=== PATIENT | female | born 1965 ===

== ENCOUNTER 2018-06-11 15:00 | Observation (INO) | payer BC, OTHER ==
[2018-06-11] MEDS ORDERED: Sodium Chloride 0.9% 1,000 ML IV STA (16:02)
[2018-06-11 16:08] LABS: BASO % 0.4 % (0.0-2.0); EOS # 0.1 K/uL (0.0-0.7); EOS % 1.3 % (0.0-4.0); HEMOGLOBIN 12.2 g/dL (12.0-16.0); LYMPH # 1.7 K/uL (1.0-4.3); MEAN CELL VOLUME 91.9 fl (81.0-99.0); MEAN CORPUSCULAR HEMOGLOBIN 30.3 pg (27.0-31.0); MONO # 0.4 K/uL (0.0-0.8); NEUT # 3.8 K/uL (1.8-7.0); NEUT % 63.3 % (50.0-75.0); NRBC % 0.2 % (0.0-0.0); RBC 4.01 Mil/uL (3.80-5.20); RED CELL DISTRIBUTION WIDTH 14.4 % (11.5-14.5)
[2018-06-11 16:19] LABS: BLOOD UREA NITROGEN 14 mg/dl (7-17); CALCIUM 9.7 mg/dL (8.4-10.2); GFR NON-AFRICAN AMERICAN > 60
--- NOTE | 2018-06-11 16:19 | ED PDOC ---
HPI: Chest Pain Time Seen by Provider: 06/11/18 15:33 Chief Complaint (Nursing): Palpitations Chief Complaint (Provider): chest pain and palpitations History Per: Patient History/Exam Limitations: no limitations Onset/Duration Of Symptoms: Days (2) Current Symptoms Are (Timing): Still Present Associated Symptoms: Syncope Exacerbating Factors: Movement Additional Complaint(s): 52 year old female with HTN and diabetes presents to the ED for an evaluation of chest pain, palpitations and one syncopal episode. Patient reports of the chest pain onset for 2 days that resolved. Yesterday, she had palpitations when walkin g and with exertion. She went to [facility] for further evaluation and was referred to the ED for further evaluation. She came to the ED via EMS and in triage patient had a syncopal episode that was witnessed by the daughter. She does not recall what happened and she recovered quickly. Otherwise, she denies shortness of breath or difficulty breathing. PCP: Dr. Bryan Zuñiga Oncologist: located in [place] Past Medical History Reviewed: Historical Data, Nursing Documentation, Vital Signs Vital Signs: Last Vital Signs Temp 98.8 F 06/11/18 15:18 Pulse 109 H 06/11/18 15:18 Resp 18 06/11/18 15:18 BP 166/85 H 06/11/18 15:18 Pulse Ox 100 06/11/18 15:18 - Medical History PMH: Diabetes, HTN Other PMH: CML - Surgical History Surgical History: Cholecystectomy, Hernia Repair Other surgeries: Left breast mastectomy - Family History Family History: States: Unknown Family Hx - Home Medications Home Medications: Ambulatory Orders Medication Instructions Recorded Amlodipine Besylate/Benazepril 5 mg PO DAILY 06/11/18 [Amlodipine-Benazepril 10-40 mg] Atenolol [Tenormin] 25 mg PO DAILY 06/11/18 Canagliflozin/Metformin HCl 1 tab PO DAILY 06/11/18 [Invokamet Xr 50-1,000 mg Tab] Dulaglutide [Trulicity] 1 dose SC QWK 06/11/18 Insulin Degludec [Tresiba] 100 unit SC DAILY 06/11/18 Ketoconazole 2% Cr [Nizoral] 1 tube TOP DAILY 06/11/18 Losartan Potassium 50 mg PO DAILY 06/11/18 Pantoprazole Sodium [Protonix] 40 mg PO DAILY 06/11/18 Aspirin [Low Dose Aspirin EC] 81 mg PO DAILY #30 tablet. 06/12/18 Atorvastatin [Lipitor] 40 mg PO HS #30 tab 06/12/18 - Allergies Allergies/Adverse Reactions: Allergies Allergy/AdvReac Type Severity Reaction Status Date / Time iodine AdvReac Severe SHORTNESS Verified 06/11/18 17:53 OF BREATH THERESA Risk Score for UA/NSTEMI - THERESA Risk Score Age > 64: NO 3 or more CAD Risk Factors: YES Known CAD (Stenosis greater than 50%): NO Aspirin use in past 7 days: NO Severe Angina: NO EKG ST changes greater than 0.5mm: NO Positive Cardiac Marker: NO THERESA Score: 1 Risk %: 5% Wells Criteria for PE - Wells Criteria for Pulmonary Embolism Clinical Signs and Symptoms of DVT: No P.E is #1 Diagnosis, or Equally Likely: Yes Heart Rate >100: Yes Immobilization at least 3 days;Surgery previous 4 weeks: No Previous, objectively diagnosed PE or DVT: No Hemoptysis: No Malignancy w/treatment within 6 months, or palliative: Yes Total Score: 3.5 Review of Systems ROS Statement: Except As Marked, All Systems Reviewed And Found Negative Constitutional: Negative for: Fever Cardiovascular: Positive for: Chest Pain, Palpitations Respiratory: Negative for: Shortness of Breath Neurological: Positive for: Other (syncopal episode ) Physical Exam - Reviewed Nursing Documentation Reviewed: Yes Vital Signs Reviewed: Yes - Physical Exam Appears: Positive for: Well (comfortable ), Non-toxic, No Acute Distress Head Exam: Positive for: ATRAUMATIC, NORMAL INSPECTION, NORMOCEPHALIC Skin: Positive for: Normal Color, Warm, Dry. Negative for: Rash Eye Exam: Positive for: EOMI, Normal appearance, PERRL ENT: Positive for: Normal ENT Inspection Neck: Positive for: Normal, Painless ROM, Supple. Negative for: Decreased ROM Cardiovascular/Chest: Positive for: Regular Rate, Rhythm, Tachycardia Respiratory: Positive for: Normal Breath Sounds. Negative for: Respiratory Distress Gastrointestinal/Abdominal: Positive for: Normal Exam, Soft. Negative for: Tenderness Back: Positive for: Normal Inspection. Negative for: L CVA Tenderness, R CVA Tenderness Extremity: Positive for: Normal ROM. Negative for: Tenderness, Pedal Edema, Deformity Neurological/Psych: Positive for: Awake, Alert, Normal Tone, Oriented (x3) - Laboratory Results Result Diagrams: 06/11/18 16:00 06/12/18 05:12 - ECG ECG Rhythm: Positive for: Normal QRS, Sinus Rhythm. Negative for: ST/T Changes Rate: 97 O2 Sat by Pulse Oximetry: 100 (RA) Pulse Ox Interpretation: Normal Medical Decision Making Medical Decision Making: Time: 15:57 Impression: chest pain, palpitation and syncope Differential Diagnosis: PE, cardiac arrhythmia less likely aortic dissection, ACS Plan: Angio Chest PE protocol CT Head w/o contrast CT B-type natriuretic peptide CBC w/ differential Normal 1000 mls/hr monitor tech Glucose, Blood, Poc EKG: normal sinus rhythm, normal QRS, no ST change with 97bpm 17:28 PROCEDURE: CT HEAD WITHOUT CONTRAST. HISTORY: syncope COMPARISON: None available. TECHNIQUE: Axial computed tomography images were obtained through the head/brain without intravenous contrast. Radiation dose: Total exam DLP = 791.87 mGy-cm. This CT exam was performed using one or more of the following dose reduction techniques: Automated exposure control, adjustment of the mA and/or kV according to patient size, and/or use of iterative reconstruction technique. FINDINGS: HEMORRHAGE: No intracranial hemorrhage. BRAIN: No mass effect or edema. No atrophy or chronic microvascular ischemic changes. VENTRICLES: Unremarkable. No hydrocephalus. CALVARIUM: Unremarkable. PARANASAL SINUSES: Sphenoid retention cyst/polyp. MASTOID AIR CELLS: Unremarkable as visualized. No inflammatory changes. OTHER FINDINGS: None. IMPRESSION: Normal CT of the Head. No intracranial mass, hemorrhage or evidence of acute infarct. Sphenoid retention cyst/polyp. Scribe Attestation: Documented by Edilia Glover, acting as a scribe for Vicenta Coyne MD Provider Scribe Attestation: All medical record entries made by the Scribe were at my direction and personally dictated by me. I have reviewed the chart and agree that the record accurately reflects my personal performance of the history, physical exam, medical decision making, and the department course for this patient. I have also personally directed, reviewed, and agree with the discharge instructions and disposition. Disposition - Clinical Impression Clinical Impression: Palpitations, Syncope, Chest pain - Patient ED Disposition Is Patient to be Admitted: Yes Discussed With DrJose: Bryan Zuñiga Doctor Will See Patient In The: ED Counseled Patient/Family Regarding: Studies Performed, Diagnosis - Disposition Disposition Time: 17:44 Condition: FAIR - Pt Status Changed To: Hospital Disposition Of: Observation - POA Present On Arrival: Falls Or Trauma
[2018-06-11 16:38] LABS: B-TYPE NATRIURETIC PEPTIDE 38.1 pg/ml (0-900)
--- NOTE | 2018-06-11 17:32 | CT ---
Date of service: 06/11/2018 PROCEDURE: CT HEAD WITHOUT CONTRAST. HISTORY: syncope COMPARISON: None available. TECHNIQUE: Axial computed tomography images were obtained through the head/brain without intravenous contrast. Radiation dose: Total exam DLP = 791.87 mGy-cm. This CT exam was performed using one or more of the following dose reduction techniques: Automated exposure control, adjustment of the mA and/or kV according to patient size, and/or use of iterative reconstruction technique. FINDINGS: HEMORRHAGE: No intracranial hemorrhage. BRAIN: No mass effect or edema. No atrophy or chronic microvascular ischemic changes. VENTRICLES: Unremarkable. No hydrocephalus. CALVARIUM: Unremarkable. PARANASAL SINUSES: Sphenoid retention cyst/polyp. MASTOID AIR CELLS: Unremarkable as visualized. No inflammatory changes. OTHER FINDINGS: None. IMPRESSION: Normal CT of the Head. No intracranial mass, hemorrhage or evidence of acute infarct. Sphenoid retention cyst/polyp.
[2018-06-11] MEDS ORDERED: Hydrocortisone- 200 MG in Sodium Chloride 0.9% 100 ML IV STA (18:20)
--- NOTE | 2018-06-11 18:50 | CP.PCM.HP ---
History of Present Illness - History of Present Illness History of Present Illness: 52 y/o F with PMH of IDDM-II, HTN, HLD obesity, leukemia, Breast ca s/p partial lumpectomy, postherpetic neuralgia and GERD admitted to [facility] for evaluation and treatment of syncope, chest pain and tachycardia. Patient was sent to [facility] by PMD for evaluation or 2 days hx of chest pain and tachycardia. Chest pain, Dull, comes and goes, non pleuritic, non reproducible, found to have tachycardia in clinic. Patient reports one episode of syncope while waiting for triage in ER, + LOC for few seconds as per sister, denies any head trauma. Patient denies any awareness of syncope. + mild lighheadedness, denies blurred vision, SOB, abdomi nal pain, weakness, or dysuria. PCP: Dr. Bryan Zuñiga Oncologist: located in [place] PMH/PSH: IDDM-II, HTN, HLD obesity, leukemia, Breast ca s/p partial lumpectomy, postherpetic neuralgia, CHolecystectomy and GERD Allg: Iodiine Meds: As per EMR SH: Denies FH: Denies ROS: As per HPI ER Course: VS: Afebrile, HR 109, RR 18, 166/85, SPo2 100 CBC, CMP and Trop normal D.dimer 250 CT head: no acute changes EKG: NSR CT angio Present on Admission - Present on Admission Any Indicators Present on Admission: No Review of Systems - Constitutional Constitutional: absent: Daytime Sleepiness, Fatigue, Fever, Lethargy, Night Sweats, Weakness - EENT Eyes: absent: Blurred Vision, Change in Vision Ears: absent: Ear Discharge Nose/Mouth/Throat: Nasal Congestion - Breasts Breasts: absent: Skin Changes - Cardiovascular Cardiovascular: Chest Pain. absent: Dyspnea on Exertion, Palpitations - Respiratory Respiratory: Cough. absent: Dyspnea, Hemoptysis, Dyspnea on Exertion - Gastrointestinal Gastrointestinal: absent: Abdominal Pain, Nausea, Vomiting - Genitourinary Genitourinary: absent: Change in Urinary Stream - Musculoskeletal Musculoskeletal: absent: Numbness, Radiating Pain into Limb, Stiffness, Tingling - Integumentary Integumentary: absent: Bleeding Lesions - Neurological Neurological: Dizziness. absent: Abnormal Hearing, Paresthesias, Sensory Deficit, Tingling, Tremor, Vertigo, Weakness, Other Visual Disturbances - Psychiatric Psychiatric: Anxiety. absent: Depression - Endocrine Endocrine: absent: Change in Body Appearance - Hematologic/Lymphatic Hematologic: absent: Easy Bleeding Past Patient History - Past Social History Smoking Status: Never Smoked - CARDIAC Hx Hypertension: Yes - ENDOCRINE/METABOLIC Hx Endocrine Disorders: Yes Hx Diabetes Mellitus Type 2: Yes - HEMATOLOGICAL/ONCOLOGICAL Hx Blood Disorders: Yes Hx Leukemia: Yes (ON ORAL CHEMO) - PSYCHIATRIC Hx Substance Use: No - SURGICAL HISTORY Hx Cholecystectomy: Yes - ANESTHESIA Hx Anesthesia: Yes Hx Anesthesia Reactions: No Meds Allergies/Adverse Reactions: Allergies Allergy/AdvReac Type Severity Reaction Status Date / Time iodine AdvReac Severe SHORTNESS Verified 06/11/18 17:53 OF BREATH Physical Exam - Constitutional Appears: No Acute Distress - Head Exam Head Exam: ATRAUMATIC, NORMAL INSPECTION, NORMOCEPHALIC - Eye Exam Eye Exam: EOMI, Normal appearance, PERRL Pupil Exam: NORMAL ACCOMODATION - ENT Exam ENT Exam: Mucous Membranes Moist - Neck Exam Neck exam: Positive for: Normal Inspection - Respiratory Exam Respiratory Exam: Clear to Auscultation Bilateral, NORMAL BREATHING PATTERN. absent: Accessory Muscle Use, Wheezes - Cardiovascular Exam Cardiovascular Exam: REGULAR RHYTHM, RRR, +S1, +S2 - GI/Abdominal Exam GI & Abdominal Exam: Normal Bowel Sounds, Soft. absent: Tenderness - Extremities Exam Extremities exam: Positive for: normal inspection. Negative for: pedal edema, tenderness - Back Exam Back exam: NORMAL INSPECTION. absent: CVA tenderness (L), CVA tenderness (R) - Neurological Exam Neurological exam: Alert, CN II-XII Intact, Oriented x3 - Psychiatric Exam Psychiatric exam: Normal Affect - Skin Skin Exam: Normal Color Results - Vital Signs Recent Vital Signs: Last Vital Signs Temp 98.8 F 06/11/18 15:18 Pulse 97 H 06/11/18 17:37 Resp 18 06/11/18 15:18 BP 166/85 H 06/11/18 15:18 Pulse Ox 100 06/11/18 17:37 - Labs Result Diagrams: 06/11/18 16:00 06/11/18 16:00 Labs: Laboratory Results - last 24 hr 06/11/18 06/11/18 06/11/18 15:15 16:00 16:00 WBC 6.0 RBC 4.01 Hgb 12.2 Hct 36.9 MCV 91.9 MCH 30.3 MCHC 33.0 RDW 14.4 Plt Count 287 MPV 8.0 Neut % (Auto) 63.3 Lymph % (Auto) 29.0 Gregory % (Auto) 6.0 Eos % (Auto) 1.3 Baso % (Auto) 0.4 Neut # (Auto) 3.8 Lymph # (Auto) 1.7 Gregory # (Auto) 0.4 Eos # (Auto) 0.1 Baso # (Auto) 0.0 Sodium 141 Potassium 3.7 Chloride 104 Carbon Dioxide 27 Anion Gap 14 BUN 14 Creatinine 0.8 Est GFR ( Amer) > 60 Est GFR (Non-Af Amer) > 60 POC Glucose (mg/dL) 97 Random Glucose 92 Calcium 9.7 Troponin I < 0.0120 NT-Pro-B Natriuret Pep 38.1 Assessment & Plan - Assessment and Plan (Free Text) Assessment: A/P: 52 y/o F with PMH of IDDM-II, HTN, HLD obesity, leukemia, Breast ca s/p partial lumpectomy, postherpetic neuralgia and GERD admitted to [facility] for evaluation and treatment of syncope, chest pain and tachycardia. Syncopal episode, Chest pain, tachycardia, r/o ACS and PE - CT angio to r/o PE - F/u Trop x 2 - F/u morning EKG - Patient is allergic to iodine: will given Hydrocortisone 5hr and [address] angio plus Benadryl [address] - STAT dose of therapeutic Lovenox for possible PE - F/u CT angio after midnight - Reevaluation in morning IDDM-II - C/w home insulin and medication - Sliding scale/Hypoglycemic protocol - Accuchecks ACHS HTN, Chronic, controlled - C/w home medications HLD, Chronic, controlled - C/w home medications GERD, Chronic, controlled - C/w home medications as ordered DVT PPX - therapeutic Lovenox/SCD, f/u CT angio Case discussed and patient seen with Dr. Zuñiga
[2018-06-11] MEDS ORDERED: DiphenhydrAMINE 50 mg/ml Inj ONE (19:02)
[2018-06-11] MEDS ORDERED: Enoxaparin 120 mg Syringe SC STA (19:11)
[2018-06-11 19:32] LABS: INR 0.9; PROTHROMBIN TIME 10.7 Seconds (9.8-13.1)
[2018-06-11 19:35] LABS: PARTIAL THROMBOPLASTIN TIME 29.6 Seconds (25.6-37.1)
[2018-06-11] MEDS: Sodium Chloride 0.9% 1,000 ML IV SCH (20:09)
[2018-06-11 20:23] VITALS: BMI 43.6
[2018-06-11] MEDS ORDERED: Benzocaine/Menthol (Cepacol) Lozenge PO ONE (21:00)
[2018-06-11] MEDS ORDERED: Glucagon Recombinant 1 mg Inj IM PRN (21:02)
[2018-06-11] MEDS ORDERED: Dextrose 50% SYRINGE Inj (50 ml) IV PRN (21:02)
[2018-06-11] MEDS ORDERED: Hydrocortisone- 200 MG in Sodium Chloride 0.9% 100 ML IV ONE ×2 (22:19→22:21)
[2018-06-11] MEDS ORDERED: DiphenhydrAMINE 50 mg/ml Inj IV ONE ×2 (22:19→22:22)
[2018-06-11] MEDS: Insulin Lispro (humaLOG) 100 Units/ml Inj SC SCH (22:51)
[2018-06-11] MEDS ORDERED: Sodium Chloride 0.9% 50 ML IV ONE (23:41)
[2018-06-11] MEDS ORDERED: Iodixanol 320 MG/ML 100 ML BOTTLE IV ONE (23:41)
[2018-06-12] MEDS ORDERED: Hydrocortisone- 200 MG in Sodium Chloride 0.9% 100 ML IV ONE (00:19)
[2018-06-12] MEDS ORDERED: DiphenhydrAMINE 50 mg/ml Inj IV ONE (00:19)
[2018-06-12] MEDS ORDERED: DiphenhydrAMINE 50 mg/ml Inj ONE (00:41)
[2018-06-12 07:43] LABS: BLOOD UREA NITROGEN 15 mg/dl (7-17); GFR NON-AFRICAN AMERICAN > 60
[2018-06-12 07:49] VITALS: RESP 18
[2018-06-12] MEDS: Insulin Lispro (humaLOG) 100 Units/ml Inj SC SCH ×2 (08:30→12:32)
[2018-06-12] MEDS ORDERED: Pantoprazole 40 mg EC Tab PO SCH (09:00)
[2018-06-12] MEDS ORDERED: BENAZEPRIL PO SCH (09:00)
[2018-06-12] MEDS ORDERED: CANAGLIFLOZIN PO SCH (09:00)
[2018-06-12] MEDS ORDERED: [UNRECOGNIZED DRUG - OTHER] PO SCH (09:00)
[2018-06-12] MEDS ORDERED: AMLODIPINE BESYLATE PO SCH (09:00)
[2018-06-12] MEDS ORDERED: METFORMIN HCL PO SCH (09:00)
[2018-06-12] MEDS ORDERED: INSULIN DEGLUDEC 100 UNIT SC SCH (09:00)
[2018-06-12] MEDS: Sodium Chloride 0.9% 1,000 ML IV SCH (10:08)
--- NOTE | 2018-06-12 10:44 | CP.PCM.DIS ---
<Marisa Pruitt Zainab - Last Filed: 06/12/18 14:38> Provider - Provider Date of Admission: 06/11/18 17:44 Attending physician: Bryan Zuñiga MD Time Spent in preparation of Discharge (in minutes): 30 Diagnosis - Discharge Diagnosis (1) Atypical chest pain Status: Acute Comment: ACS r/o on admission, f/u with Dr. Pack for stress test to r/o stable CAD (2) Syncope Status: Acute Comment: Carotid US reported as WNL. Pending echo results. F/u with Cardio and PMD as outpatient (3) Diabetes mellitus Status: Chronic (4) Hypertension Status: Chronic (5) Hyperlipidemia Status: Chronic Hospital Course - Lab Results Lab Results: Most Recent Lab Values WBC 6.0 K/uL (4.8-10.8) 06/11/18 16:00 RBC 4.01 Mil/uL (3.80-5.20) 06/11/18 16:00 Hgb 12.2 g/dL (12.0-16.0) 06/11/18 16:00 Hct 36.9 % (34.0-47.0) 06/11/18 16:00 MCV 91.9 fl (81.0-99.0) 06/11/18 16:00 MCH 30.3 pg (27.0-31.0) 06/11/18 16:00 MCHC 33.0 g/dL (33.0-37.0) 06/11/18 16:00 RDW 14.4 % (11.5-14.5) 06/11/18 16:00 Plt Count 287 K/uL (130-400) 06/11/18 16:00 MPV 8.0 fl (7.2-11.7) 06/11/18 16:00 Neut % (Auto) 63.3 % (50.0-75.0) 06/11/18 16:00 Lymph % (Auto) 29.0 % (20.0-40.0) 06/11/18 16:00 [place] % (Auto) 6.0 % (0.0-10.0) 06/11/18 16:00 Eos % (Auto) 1.3 % (0.0-4.0) 06/11/18 16:00 Baso % (Auto) 0.4 % (0.0-2.0) 06/11/18 16:00 Neut # (Auto) 3.8 K/uL (1.8-7.0) 06/11/18 16:00 Lymph # (Auto) 1.7 K/uL (1.0-4.3) 06/11/18 16:00 [place] # (Auto) 0.4 K/uL (0.0-0.8) 06/11/18 16:00 Eos # (Auto) 0.1 K/uL (0.0-0.7) 06/11/18 16:00 Baso # (Auto) 0.0 K/uL (0.0-0.2) 06/11/18 16:00 PT 10.7 Seconds (9.8-13.1) 06/11/18 19:13 INR 0.9 06/11/18 19:13 APTT 29.6 Seconds (25.6-37.1) 06/11/18 19:13 D-Dimer, Quantitative 250 ng/mlDDU (0-230) H 06/11/18 19:13 Sodium 140 mmol/l (132-148) 06/12/18 05:12 Potassium 3.7 MMOL/L (3.6-5.0) 06/12/18 05:12 Chloride 107 mmol/L (98-107) 06/12/18 05:12 Carbon Dioxide 26 mmol/L (22-30) 06/12/18 05:12 Anion Gap 11 (10-20) 06/12/18 05:12 BUN 15 mg/dl (7-17) 06/12/18 05:12 Creatinine 0.8 mg/dl (0.7-1.2) 06/12/18 05:12 Est GFR ( Amer) > 60 06/12/18 05:12 Est GFR (Non-Af Amer) > 60 06/12/18 05:12 POC Glucose (mg/dL) 169 mg/dL (65-110) H 06/12/18 05:46 Random Glucose 161 mg/dL (65-105) H 06/12/18 05:12 Calcium 9.0 mg/dL (8.4-10.2) 06/12/18 05:12 Troponin I < 0.0120 ng/mL (0.00-0.120) 06/12/18 05:12 NT-Pro-B Natriuret Pep 38.1 pg/ml (0-900) 06/11/18 16:00 - Hospital Course Hospital Course: 52 y/o F with PMH of IDDM-II, HTN, HLD obesity, leukemia, Breast ca s/p partial lumpectomy, postherpetic neuralgia and GERD admitted to [facility] for evaluation and treatment of syncope, chest pain and tachycardia. Admitted to r/o ACS and syncope work up. EKG in ER showed NSR, no specific T wave abnormality. Troponin I x [address] reported as no evidence of embolism. Head CT reported as normal CT of the head. Carotid US reported as less than 50 % stenosis of internal carotid arteries, bilateral. Also patient had an echocardiogram done on admission, pending report at the time of DC. On admission patient has been asymptomatic and vital signs stable and WNL. Was started on aspirin and statin. Patient was seen and examined at bedside this morning. Patient denies any chest pain, SOB or palpitations at this eval. Denies dizziness, N/V or other symptoms. Strongly recommended to f/u with her Customer Success Director, Dr. Pack, for possible stress test to r/o CAD. ACS was r/o on admission. Pending echo reading. Also she will f/u with PMD, Dr. Zuñiga, as outpatient. C/W aspirin and statin for now until eval by her general lithographic worker. - Date & Time of H&P Date of H&P: 06/11/18 Time of H&P: 18:50 Discharge Exam - Head Exam Head Exam: ATRAUMATIC, NORMAL INSPECTION, NORMOCEPHALIC - Eye Exam Eye Exam: Normal appearance - ENT Exam ENT Exam: Mucous Membranes Moist - Respiratory Exam Respiratory Exam: Clear to PA & Lateral, NORMAL BREATHING PATTERN, UNREMARKABLE. absent: Wheezes, Respiratory Distress, Stridor - Cardiovascular Exam Cardiovascular Exam: REGULAR RHYTHM, +S1, +S2 - GI/Abdominal Exam GI & Abdominal Exam: Normal Bowel Sounds, Soft. absent: Distended, Guarding, Rebound, Rigid, Tenderness - Extremities Exam Extremities exam: normal inspection - Back Exam Back exam: NORMAL INSPECTION. absent: CVA tenderness (L), CVA tenderness (R) - Neurological Exam Neurological exam: Alert, Oriented x3 - Psychiatric Exam Psychiatric exam: Normal Affect, Normal Mood - Skin Skin Exam: Dry, Intact, Normal Color Discharge Plan - Discharge Medications Prescriptions: Aspirin [Low Dose Aspirin EC] 81 mg PO DAILY #30 tablet. Atorvastatin [Lipitor] 40 mg PO HS #30 tab - Follow Up Plan Condition: GOOD Disposition: HOME/ ROUTINE Patient education suggested?: Yes Instructions: Chest Pain (DC), Syncope (Fainting) (DC) Referrals: Rogelio Pack MD [Staff Provider] - Bryan Zuñiga MD [Staff Provider] - <Jo Cristina - Last Filed: 06/12/18 16:16> Provider - Provider Date of Admission: 06/11/18 17:44 Attending physician: Bryan Zuñiga MD Hospital Course - Lab Results Lab Results: Most Recent Lab Values WBC 6.0 K/uL (4.8-10.8) 06/11/18 16:00 RBC 4.01 Mil/uL (3.80-5.20) 06/11/18 16:00 Hgb 12.2 g/dL (12.0-16.0) 06/11/18 16:00 Hct 36.9 % (34.0-47.0) 06/11/18 16:00 MCV 91.9 fl (81.0-99.0) 06/11/18 16:00 MCH 30.3 pg (27.0-31.0) 06/11/18 16:00 MCHC 33.0 g/dL (33.0-37.0) 06/11/18 16:00 RDW 14.4 % (11.5-14.5) 06/11/18 16:00 Plt Count 287 K/uL (130-400) 06/11/18 16:00 MPV 8.0 fl (7.2-11.7) 06/11/18 16:00 Neut % (Auto) 63.3 % (50.0-75.0) 06/11/18 16:00 Lymph % (Auto) 29.0 % (20.0-40.0) 06/11/18 16:00 Pondera % (Auto) 6.0 % (0.0-10.0) 06/11/18 16:00 Eos % (Auto) 1.3 % (0.0-4.0) 06/11/18 16:00 Baso % (Auto) 0.4 % (0.0-2.0) 06/11/18 16:00 Neut # (Auto) 3.8 K/uL (1.8-7.0) 06/11/18 16:00 Lymph # (Auto) 1.7 K/uL (1.0-4.3) 06/11/18 16:00 [place] # (Auto) 0.4 K/uL (0.0-0.8) 06/11/18 16:00 Eos # (Auto) 0.1 K/uL (0.0-0.7) 06/11/18 16:00 Baso # (Auto) 0.0 K/uL (0.0-0.2) 06/11/18 16:00 PT 10.7 Seconds (9.8-13.1) 06/11/18 19:13 INR 0.9 06/11/18 19:13 APTT 29.6 Seconds (25.6-37.1) 06/11/18 19:13 D-Dimer, Quantitative 250 ng/mlDDU (0-230) H 06/11/18 19:13 Sodium 140 mmol/l (132-148) 06/12/18 05:12 Potassium 3.7 MMOL/L (3.6-5.0) 06/12/18 05:12 Chloride 107 mmol/L (98-107) 06/12/18 05:12 Carbon Dioxide 26 mmol/L (22-30) 06/12/18 05:12 Anion Gap 11 (10-20) 06/12/18 05:12 BUN 15 mg/dl (7-17) 06/12/18 05:12 Creatinine 0.8 mg/dl (0.7-1.2) 06/12/18 05:12 Est GFR ( Amer) > 60 06/12/18 05:12 Est GFR (Non-Af Amer) > 60 06/12/18 05:12 POC Glucose (mg/dL) 209 mg/dL (65-110) H 06/12/18 10:52 Random Glucose 161 mg/dL (65-105) H 06/12/18 05:12 Calcium 9.0 mg/dL (8.4-10.2) 06/12/18 05:12 Troponin I < 0.0120 ng/mL (0.00-0.120) 06/12/18 05:12 NT-Pro-B Natriuret Pep 38.1 pg/ml (0-900) 06/11/18 16:00 Attending/Attestation - Attestation I have personally seen and examined this patient.: Yes I have fully participated in the care of the patient.: Yes I have reviewed all pertinent clinical information, including history, physical exam and plan: Yes Notes (Text): 06/12/18 16:14 52 y/o F with PMH of IDDM-II, HTN, HLD obesity, leukemia, Breast ca s/p partial lumpectomy, postherpetic neuralgia and GERD admitted to [facility] for evaluation and treatment of syncope, chest pain and tachycardia. Admitted to r/o ACS and syncope work up. All diagnostic studies negative, echo report pending. No active chest pain, no angina/unstable angina. Pt Customer Success Director is Dr. Pack, advised to close follow up for outpatient stresstest. HD stable NAD.
--- NOTE | 2018-06-12 11:24 | CT ---
Date of service: 06/11/2018 PROCEDURE: CT Chest with contrast (Pulmonary Angiogram) HISTORY: syncope palpiations chest pain COMPARISON: None available. TECHNIQUE: Axial computed tomography images were obtained of the chest in the pulmonary arterial phase of enhancement. Coronal and sagittal reformatted images were created and reviewed. Intravenous contrast dose: 95 mL Visipaque 320 Radiation dose: Total exam DLP = 289.32 mGy-cm. This CT exam was performed using one or more of the following dose reduction techniques: Automated exposure control, adjustment of the mA and/or kV according to patient size, and/or use of iterative reconstruction technique. FINDINGS: PULMONARY ARTERIES: Suboptimal opacification of the pulmonary arteries. No central pulmonary embolism. Subsegmental pulmonary emboli would be difficult to exclude. AORTA: No acute findings. No thoracic aortic aneurysm. No aortic atherosclerotic calcification or mural plaque present. LUNGS: Unremarkable. No nodule, mass or pulmonary consolidation. PLEURAL SPACES: Unremarkable. No effusion or pneumothorax. HEART: Unremarkable. No cardiomegaly. No significant pericardial effusion. LYMPH NODES: No lymphadenopathy. BONES, CHEST WALL: Unremarkable. No fracture or destructive lesion OTHER FINDINGS: Unremarkable. IMPRESSION: Suboptimal opacification of the pulmonary arteries. No evidence of central pulmonary embolism. Subsegmental pulmonary emboli would be difficult to exclude.
[2018-06-12 11:50] VITALS: BP 146/86; TEMP 98.3
--- NOTE | 2018-06-12 12:46 | US ---
Date of service: 06/12/2018 PROCEDURE: Duplex ultrasound of the carotid and vertebral arteries. HISTORY: SYNCOPY COMPARISON: None available. TECHNIQUE: Grayscale and duplex Doppler evaluation of the cervical carotid and vertebral arteries were performed. The common carotid, carotid bifurcations and cervical ICA and proximal ECA were evaluated. The vertebral arteries were evaluated for gross patency and direction. FINDINGS: RIGHT CAROTID ARTERIES: Common Carotid Artery: Normal. Maximal flow velocity of 82 cm/s. Carotid Bifurcation: Mild noncalcific plaque. Internal Carotid Artery:Normal. Maximal flow velocity of 65.5 cm/s. External Carotid Artery (proximal branches): Normal. Maximal flow velocity of 51.4 cm/s. ICA/CCA Ratio: 0.8 LEFT CAROTID ARTERIES: Common Carotid Artery: Normal. Maximal flow velocity of 60.2 cm/s. Carotid Bifurcation: Normal. Internal Carotid Artery:Normal. Maximal flow velocity of 96.5 cm/s. External Carotid Artery (proximal branches): Normal. Maximal flow velocity of 37.2 cm/s. ICA/CCA Ratio: 1.6 VERTEBRAL ARTERIES: Right Vertebral Artery: Patent. Antegrade flow. Left Vertebral Artery: Patent. Antegrade flow. OTHER FINDINGS: No atherosclerotic calcification present IMPRESSION: Per NASCET criteria, less than 50 percent stenosis of the internal carotid arteries, bilaterally.
--- NOTE | 2018-06-12 20:34 | CARD ---
APPROVED REPORT Date of service: 06/11/2018 EKG Measurement Heart [id number] <Conclusion> Normal sinus rhythm Nonspecific T wave abnormality Prolonged QT Abnormal ECG
--- NOTE | 2018-06-12 21:00 | CARD ---
APPROVED REPORT Date of service: 06/12/2018 EXAM: Two-dimensional and M-mode echocardiogram with Doppler and color Doppler. Other Information Quality : AverageRhythm : NSR INDICATION Dyspnea 2D DIMENSIONS IVSd1.02 (0.7-1.1cm)LVDd4.41 (3.9-5.9cm) LVOT Diameter1.88 (1.8-2.4cm)PWd1.00 (0.7-1.1cm) IVSs1.19 (0.8-1.2cm)LVDs3.37 (2.5-4.0cm) FS (%) 23.7 %PWs1.02 (0.8-1.2cm) M-Mode DIMENSIONS Left Atrium (MM)3.85 (2.5-4.0cm)IVSd1.00 (0.7-1.1cm) Aortic Root3.09 (2.2-3.7cm)LVDd5.18 (4.0-5.6cm) Aortic Cusp Exc.1.91 (1.5-2.0cm)PWd0.88 (0.7-1.1cm) IVSs1.65 cmFS (%) 53 % LVDs2.41 (2.0-3.8cm)PWs1.24 cm Aortic Valve AoV Peak Grfiyowa094.7cm/sAoV VTI23.4cmAO Peak GR.6mmHg LVOT Peak Uquvxbqm92.6cm/sLVOT VTI14.65cmAO Mean GR.4mmHg LACIE (VMAX)0.62uq4JZY (VTI)0.81cm2 Mitral Valve MV E Gmnzwbyk16.6cm/sMV DECEL VLPV797dtRP A Ikgidqvb93.8cm/s MV JHR69trI/A ratio0.8MVA (PHT)3.33cm2 TDI Lateral E' Peak V8.07cm/sMedial E' Peak V8.15cm/sE/Lateral E'9.0 E/Medial E'8.9 LEFT VENTRICLE The left ventricle is normal size. There is normal left ventricular wall thickness. The left ventricular systolic function is normal. The estimated ejection fraction is 55-60% No regional wall motion abnormalities noted.. Transmitral Doppler flow pattern is Grade I-abnormal relaxation pattern. No left ventricle thrombus noted on this study. There is no ventricular septal defect visualized. There is no left ventricular aneurysm. There is no mass noted in the left ventricle. RIGHT VENTRICLE The right ventricle is normal size. There is normal right ventricular wall thickness. The right ventricular systolic function is normal. ATRIA The left atrium is mildly dilated. The right atrium size is normal. The interatrial septum is intact with no evidence for an atrial septal defect. AORTIC VALVE The aortic valve is normal in structure. No aortic regurgitation is present. There is no aortic valvular stenosis. There is no aortic valvular vegetation. MITRAL VALVE The mitral valve is normal in structure. There is no evidence of mitral valve prolapse. There is no mitral valve stenosis. There is no mitral valve regurgitation noted. TRICUSPID VALVE The tricuspid valve is normal in structure. There is no tricuspid valve regurgitation noted. There is no tricuspid valve prolapse or vegetation. There is no tricuspid valve stenosis. PULMONIC VALVE The pulmonary valve is normal in structure. There is no pulmonic valvular regurgitation. There is no pulmonic valvular stenosis. GREAT VESSELS The aortic root is normal in size. The ascending aorta is normal in size. The pulmonary artery is normal. The IVC is normal in size and collapses >50% with inspiration. PERICARDIAL EFFUSION There is no pericardial effusion. There is no pleural effusion. <Conclusion> The estimated ejection fraction is 55-60% Transmitral Doppler flow pattern is Grade I-abnormal relaxation pattern. The left atrium is mildly dilated. There is no tricuspid valve regurgitation noted.
[2018-06-13 17:43] VITALS: PULSE 97; O2SAT 100
== END 2018-06-12 13:41 | disposition home or self-care (01) ==
LOC: H.ER 15:00 → H.ERHOLD 17:44 → H.TEL 06-12 01:15
PROVIDERS: ADMIT Family Medicine; ATTEND Family Medicine
DX: R07.89 Other chest pain (principal); E11.9 Type 2 diabetes mellitus without complications; E78.5 Hyperlipidemia, unspecified; I10 Essential (primary) hypertension; K21.9 Gastro-esophageal reflux disease without esophagitis; Z79.4 Long term (current) use of insulin; Z79.82 Long term (current) use of aspirin; C95.90 Leukemia, unspecified not having achieved remission; Z90.49 Acquired absence of other specified parts of digestive tract; Z91.041 Radiographic dye allergy status; Z79.899 Other long term (current) drug therapy; R00.0 Tachycardia, unspecified; R00.2 Palpitations; R55 Syncope and collapse
CPT/HCPCS: 36415; 70450; 71275; 80048; 82948; 83880; 84484; 85025; 85378; 85610; 85730; 93005; 93306; 93880; 96361; 96365; 96366; 96372; 96375; 99285; G0378; J1200; J1650; J1720; J7030; Q9967